=== PATIENT | female | born 1985 | race Caucasian/White ===

== ENCOUNTER 2016-05-03 05:40 | Emergency (ER) | payer BC, MEDICAID, OTHER ==
[2016-05-03] MEDS ORDERED: Phenazopyridine TAB* 100 MG PO ONE ×2 (06:14)
[2016-05-03] MEDS ORDERED: NS 0.9% 1000 ML* 1,000 ML IV ONE (07:00)
[2016-05-03] MEDS ORDERED: Sulfamethox/Trimethoprim DS 800/160* TAB PO ONE ×2 (07:21)
[2016-05-03 07:24] LABS: Urine Bacteria Absent (Absent)
--- NOTE | 2016-05-03 07:40 | ED ---
GI/ HPI - HPI Summary HPI Summary: 31 y/o female with 24 hours history of blood in urine, frequent urination. Denies fever, chills, no back pain currently. NO h/o UTIS, no recent AB use. UA ~1 year ago + for microscopic hematuria, + TOB use. No vaginal discharge, painful intercourse. Mild- moderate lower abdominal pain. no meds currently - History of Current Complaint Chief Complaint: EDUrogenitalProblems Time Seen by Provider: 05/03/16 06:50 Stated Complaint: BLOOD IN URINE Hx Obtained From: Patient Onset/Duration: Started Days Ago Timing: Constant Severity: Moderate Current Severity: Moderate Pain Intensity: 4 Location of Pain: RLQ, LLQ, Suprapubic Pain Characteristics: Dull, Cramping, Aching Associated Signs and Symptoms: Positive: Hematuria, UTI Symptoms - Allergy/Home Medications Allergies/Adverse Reactions: Allergies Allergy/AdvReac Type Severity Reaction Status Date / Time No Known Allergies Allergy Verified 08/15/15 14:38 PMH/Surg Hx/FS Hx/Imm Hx Previously Healthy: Yes Endocrine/Hematology History: Denies: Hx Diabetes - GESTIONAL DIABETES, Hx Systemic Lupus Erythematosus, Hx Thyroid Disease Cardiovascular History: Denies: Hx Congestive Heart Failure, Hx Hypertension, Hx Pacemaker/ICD Respiratory History: Denies: Hx Asthma GI History: Denies: Hx Ulcer History: Denies: Hx Dialysis, Hx Renal Disease Musculoskeletal History: Denies: Hx Rheumatoid Arthritis Sensory History: Reports: Hx Contacts or Glasses - glasses Denies: Hx Hearing Aid Opthamlomology History: Reports: Hx Contacts or Glasses - glasses Neurological History: Reports: Hx Headaches, Hx Migraine, Other Neuro Impairments/Disorders - PAIN CLINIC PATIENT Psychiatric History: Reports: Hx Bipolar Disorder Denies: Hx Panic Disorder - Cancer History Hx Chemotherapy: No - Surgical History Surgery Procedure, Year, and Place: tonsillectomy. appendectomy Infectious Disease History: No Infectious Disease History: Denies: Hx Clostridium Difficile, Hx Hepatitis, Hx Human Immunodeficiency Virus (HIV), Hx of Known/Suspected MRSA, Hx Shingles, Hx Tuberculosis, Traveled Outside the [place] in Last 30 Days - Family History Known Family History: Positive: None - Social History Alcohol Use: Rare Hx Substance Use: No Substance Use Type: Reports: None Hx Tobacco Use: Yes Smoking Status (MU): Current Every Day Smoker Type: Cigarettes Amount Used/How Often: 5 cigarettes/day Have You Smoked in the Last Year: Yes Review of Systems Constitutional: Negative Eyes: Negative ENT: Negative Cardiovascular: Negative Respiratory: Negative Positive: Abdominal Pain Positive: frequency, hematuria Musculoskeletal: Negative Skin: Negative Neurological: Negative Psychological: Normal All Other Systems Reviewed And Are Negative: Yes Physical Exam Triage Information Reviewed: Yes Vital Signs On Initial Exam: Initial Vitals Temp Pulse Resp BP Pulse Ox 98.0 F 96 17 143/86 98 05/03/16 05:50 05/03/16 05:50 05/03/16 05:50 05/03/16 05:50 05/03/16 05:50 Vital Signs Reviewed: Yes Appearance: Positive: Well-Appearing, No Pain Distress, Well-Nourished Skin: Positive: Warm, Skin Color Reflects Adequate Perfusion Head/Face: Positive: Normal Head/Face Inspection Abdomen Description: Positive: No Organomegaly, Soft, Other: - tender with moderate palpation over suprapubic, RLQ, LLQ with pain radiating to suprapubic region Neurological: Positive: Normal, Sensory/Motor Intact, Alert, Oriented to Person Place, Time, CN Intact II-III Psychiatric: Positive: Normal AVPU Assessment: Alert Diagnostics - Vital Signs Vital Signs Temp Pulse Resp BP Pulse Ox 05/03/16 05:50 98.0 F 96 17 143/86 98 - Laboratory Lab Results: Lab Results 05/03/16 Range/Units 07:03 Urine Color Red A Urine Appearance Cloudy Urine pH TNP Ur Specific [place] 1.021 (1.010-1.030) Urine Protein TNP Urine Ketones TNP Urine Blood TNP Urine Nitrate TNP Urine Bilirubin TNP Urine Urobilinogen TNP Ur Leukocyte Esterase TNP Urine WBC (Auto) 1+(6-10/hpf) H (Absent) Urine RBC (Auto) 3+(>10/hpf) H (Absent) Urine Bacteria Absent (Absent) Urine Glucose TNP Urine Ascorbic Acid TNP Lab Statement: Any lab studies that have been ordered have been reviewed, and results considered in the medical decision making process. GIGU Course/Dx - Course Course Of Treatment: UA sent, inconclusive due to emanuel hematuria, sent for cytology due to prior hematuria and TOB history, BActrim started x 7 days, return if no improvement in symptoms within 24 hours - Diagnoses Differential Diagnoses - Female: Colitis, Cystitis, Diverticulitis, Pyelonephritis Provider Diagnoses: Cystitis Discharge - Discharge Plan Condition: Good Disposition: HOME Prescriptions: Sulfamethox/Trimethoprim DS* [Bactrim DS 800/160 TAB*] 1 tab PO BID #14 tab Patient Education Materials: Urinary Tract Infection in Women (ED), Hematuria ( ED) Forms: *Work Release Additional Instructions: - Tylenol for pain, spasm - Continue antibiotics x 7 days - Follow up with PCP or return to ER if no improvement of symptoms within 24 hours or no urination x 6 hours - Increase fluids!!! - Follow up within 3-4 days in ER for cytology results
[2016-05-03 09:13] VITALS: BP 120/79
== END 2016-05-03 09:11 | disposition home or self-care (01) ==
LOC: ED 05:40
DX: N30.90 Cystitis, unspecified without hematuria (principal); R31.9 Hematuria, unspecified; R10.30 Lower abdominal pain, unspecified
CPT/HCPCS: 81003; 88112; 99282; A9270-GY

== ENCOUNTER 2016-05-20 17:17 | Emergency (ER) | payer MEDICAID, OTHER ==
[2016-05-20 21:12] LABS: Hematocrit 46 % (35-47); Hemoglobin 15.8 g/dl (12.0-16.0); Mean Corpuscular HGB Conc 34 g/dl (31-36); Mean Corpuscular Hemoglobin 28 pg (27-31); Mean Corpuscular Volume 83 fL (80-97); Mean Platelet Volume 8 um3 (7.4-10.4); Red Blood Count 5.63 10^6/ul (4.0-5.4); Red Cell Distribution Width 13 % (10.5-15); White Blood Count 8.7 10^3/ul (3.5-10.8)
[2016-05-20 21:28] LABS: Albumin 4.3 g/dL (3.2-5.2); BUN/Creatinine Ratio 21.6 (8-20); C Reactive Protein 7.52 mg/L (< 5.00); Calcium 9.2 mg/dL (8.6-10.3); EGFR African American 179.7 (>60); EGFR Non-African American 139.8 (>60); Globulin 2.7 g/dL (2-4); Potassium 3.9 mmol/L (3.5-5.0); Total Bilirubin 0.8 mg/dL (0.2-1.0)
[2016-05-20 21:36] LABS: Urine Bacteria Absent (Absent); Urine Bilirubin Negative (Negative); Urine Glucose Negative (Negative); Urine Nitrite Negative (Negative)
[2016-05-20] MEDS ORDERED: Ondansetron INJ* 2 MG/ML VIAL IV ONE (21:48)
[2016-05-20] MEDS ORDERED: HYDROmorphone INJ* 1 MG/ML CARPUJECT SYRINGE IV ONE ×2 (21:48)
--- NOTE | 2016-05-20 22:20 | RAD ---
INDICATION: Right flank abdominal pain. COMPARISON: Comparison is made with a prior CT of the abdomen and pelvis from April 28, 2015. TECHNIQUE: A CT scan of the abdomen and pelvis was performed without intravenous or oral contrast. Contiguous axial sections were obtained from the lung bases through the symphysis pubis. Images were reconstructed in the coronal and sagittal planes. FINDINGS: The lung bases are clear. No pleural effusion is present. The liver and spleen are within normal limits in size without significant focal abnormality on this noncontrast study. No calcified gallstones are seen. The pancreas appears to be within normal limits in size. The adrenal glands and kidneys are normal in size. No renal calculi or hydronephrosis is seen. No ureteral or bladder calculi are seen. The aorta is normal in caliber without significant calcific plaque. No significant enlarged retroperitoneal lymph nodes are seen. The stomach, small and large bowel appear nondistended. The patient is status post appendectomy. There is no evidence for diverticulitis or colitis. The uterus is retroverted and normal in size. There is a trace amount of free intraperitoneal fluid in the cul-de-sac. No free intraperitoneal air is seen. No significant focal osseous abnormality is seen. IMPRESSION: 1. NO EVIDENCE FOR ACUTE INTRA-ABDOMINAL ABNORMALITY OR CAUSE FOR THE PATIENT'S ABDOMINAL PAIN IS SEEN. 2. STATUS POST APPENDECTOMY.
[2016-05-20] MEDS ORDERED: HYDROcodone/ACETAMIN 5-325 MG* 1 TAB PO ONE (23:00)
[2016-05-20] MEDS ORDERED: HYDROcodone/ACETAMIN 5-325 MG* 1 TAB ONE ×2 (23:10)
[2016-05-20 23:22] VITALS: BP 107/80
--- NOTE | 2016-05-20 23:56 | ED ---
Archie Mitchell Erika, scribed for Kulwant Brar MD on 05/20/16 at 2141 . GI/ HPI - HPI Summary HPI Summary: Patient is a 31-year-old female presenting to the ED with a CC of bilateral flank pain. Patient reports that she was seen in the ED on 05/03/2016 due to gross hematuria that morning. She was put on a course of doxycycline. Now, patient denies known hematuria, but states bilateral flank pain for the past few days, worse on the right than the left. She describes the pain as an aching/ dullness, and states it is worse in the morning but is not affected by movement. Pt has chronic back pain, but reports that this feels different. She states she most recently urinated 4 hours ago, and that she usually urinates 3x/ day. Pt denies increased urgency currently and denies a change in amount of urine. Patient also reports some nausea. She states that last night, she suddenly developed what felt like "a weight on my body," which improved after sitting down. This afternoon, another episode occurred, and this time she became very nauseated afterwards. Pt also notes she developed pain in her right calf a few days ago. Pt states that since January or February of 2016, she has had her period 2x/month. - History of Current Complaint Chief Complaint: EDUrogenitalProblems Time Seen by Provider: 05/20/16 19:38 Stated Complaint: BACK PAIN,NAUSEA,WEAKNESS Hx Obtained From: Patient Onset/Duration: Started Days Ago, Atraumatic, Still Present Timing: Constant Current Severity: Moderate Pain Intensity: 5 Location of Pain: Flank - R>L Pain Characteristics: Aching Associated Signs and Symptoms: Positive: Nausea Aggravating Factor(s): Nothing Alleviating Factor(s): Nothing - Allergy/Home Medications Allergies/Adverse Reactions: Allergies Allergy/AdvReac Type Severity Reaction Status Date / Time No Known Allergies Allergy Verified 08/15/15 14:38 PMH/Surg Hx/FS Hx/Imm Hx Endocrine/Hematology History: Denies: Hx Diabetes - GESTIONAL DIABETES, Hx Systemic Lupus Erythematosus, Hx Thyroid Disease Cardiovascular History: Denies: Hx Congestive Heart Failure, Hx Hypertension, Hx Pacemaker/ICD Respiratory History: Denies: Hx Asthma GI History: Denies: Hx Ulcer History: Denies: Hx Dialysis, Hx Renal Disease Musculoskeletal History: Denies: Hx Rheumatoid Arthritis Sensory History: Reports: Hx Contacts or Glasses - glasses Denies: Hx Hearing Aid Opthamlomology History: Reports: Hx Contacts or Glasses - glasses Neurological History: Reports: Hx Headaches, Hx Migraine, Other Neuro Impairments/Disorders - PAIN CLINIC PATIENT Psychiatric History: Reports: Hx Bipolar Disorder Denies: Hx Panic Disorder - Cancer History Hx Chemotherapy: No - Surgical History Surgery Procedure, Year, and Place: tonsillectomy. appendectomy Infectious Disease History: No Infectious Disease History: Denies: Hx Clostridium Difficile, Hx Hepatitis, Hx Human Immunodeficiency Virus (HIV), Hx of Known/Suspected MRSA, Hx Shingles, Hx Tuberculosis, Traveled Outside the [place] in Last 30 Days - Family History Known Family History: Positive: Other - aneurysm, bipolar disorder - Social History Alcohol Use: Rare Hx Substance Use: No Substance Use Type: Reports: None Hx Tobacco Use: Yes Smoking Status (MU): Current Every Day Smoker Type: Cigarettes Amount Used/How Often: 5 cigarettes/day Have You Smoked in the Last Year: Yes Review of Systems Constitutional: Other - "a weight on my body" sensation Positive: Nausea Positive: flank pain - R>L. Negative: frequency, urgency Musculoskeletal: Other - right calf pain All Other Systems Reviewed And Are Negative: Yes Physical Exam Triage Information Reviewed: Yes Vital Signs On Initial Exam: Initial Vitals Temp Pulse Resp BP Pulse Ox 98.0 F 127 20 142/97 100 05/20/16 17:48 05/20/16 17:48 05/20/16 17:48 05/20/16 17:48 05/20/16 17:48 Vital Signs Reviewed: Yes Appearance: Positive: Well-Appearing, No Pain Distress Skin: Positive: Warm, Skin Color Reflects Adequate Perfusion, Dry Head/Face: Positive: Normal Head/Face Inspection Eyes: Positive: Normal ENT: Positive: Normal ENT inspection Neck: Positive: Supple, Nontender Respiratory/Lung Sounds: Positive: Clear to Auscultation, Breath Sounds Present Cardiovascular: Positive: Tachycardia - at 127 on triage Abdomen Description: Positive: Nontender, Soft. Negative: CVA Tenderness (R), CVA Tenderness (L) Bowel Sounds: Positive: Present Musculoskeletal: Positive: Normal Neurological: Positive: Normal Psychiatric: Positive: Affect/Mood Appropriate Diagnostics - Vital Signs Vital Signs Temp Pulse Resp BP Pulse Ox 05/20/16 17:48 98.0 F 127 20 142/97 100 - Laboratory Lab Results: Lab Results 05/20/16 05/20/16 05/20/16 Range/Units 20:55 20:55 20:55 WBC 8.7 (3.5-10.8) 10^3/ul RBC 5.63 H (4.0-5.4) 10^6/ul Hgb 15.8 (12.0-16.0) g/dl Hct 46 (35-47) % MCV 83 (80-97) fL MCH 28 (27-31) pg MCHC 34 (31-36) g/dl RDW 13 (10.5-15) % Plt Count 232 (150-450) 10^3/ul MPV 8 (7.4-10.4) um3 Neut % (Auto) 90.0 H (38-83) % Lymph % (Auto) 4.5 L (25-47) % Branch % (Auto) 4.1 (1-9) % Eos % (Auto) 1.1 (0-6) % Baso % (Auto) 0.3 (0-2) % Absolute Neuts (auto) 7.9 H (1.5-7.7) 10^3/ul Absolute Lymphs (auto) 0.4 L (1.0-4.8) 10^3/ul Absolute Monos (auto) 0.4 (0-0.8) 10^3/ul Absolute Eos (auto) 0.1 (0-0.6) 10^3/ul Absolute Basos (auto) 0 (0-0.2) 10^3/ul Absolute Nucleated RBC 0 10^3/ul Nucleated RBC % 0 Sodium 134 (133-145) mmol/L Potassium 3.9 (3.5-5.0) mmol/L Chloride 105 (101-111) mmol/L Carbon Dioxide 22 (22-32) mmol/L Anion Gap 7 (2-11) mmol/L BUN 11 (6-24) mg/dL Creatinine 0.51 (0.51-0.95) mg/dL Est GFR ( Amer) 179.7 (>60) Est GFR (Non-Af Amer) 139.8 (>60) BUN/Creatinine Ratio 21.6 H (8-20) Glucose 117 H (70-100) mg/dL Lactic Acid (0.5-2.0) mmol/L Calcium 9.2 (8.6-10.3) mg/dL Total Bilirubin 0.80 (0.2-1.0) mg/dL AST 14 (13-39) U/L ALT 15 (7-52) U/L Alkaline Phosphatase 67 (34-104) U/L C-Reactive Protein 7.52 H (< 5.00) mg/L Total Protein 7.0 (6.4-8.9) g/dL Albumin 4.3 (3.2-5.2) g/dL Globulin 2.7 (2-4) g/dL Albumin/Globulin Ratio 1.6 (1-3) Lipase 21 (11.0-82.0) U/L Urine Color Yellow Urine Appearance Turbid Urine pH 5.0 (5-9) Ur Specific [place] 1.030 (1.010-1.030) Urine Protein Negative (Negative) Urine Ketones 1+ H (Negative) Urine Blood Negative (Negative) Urine Nitrate Negative (Negative) Urine Bilirubin Negative (Negative) Urine Urobilinogen Negative (Negative) Ur Leukocyte Esterase Trace H (Negative) Urine WBC (Auto) Absent (Absent) Urine RBC (Auto) Absent (Absent) Ur Squamous Epith Cells Present H (Absent) Amorphous Crystals Present H (Absent) Urine Bacteria Absent (Absent) Urine Glucose Negative (Negative) 05/20/16 Range/Units 20:55 WBC (3.5-10.8) 10^3/ul RBC (4.0-5.4) 10^6/ul Hgb (12.0-16.0) g/dl Hct (35-47) % MCV (80-97) fL MCH (27-31) pg MCHC (31-36) g/dl RDW (10.5-15) % Plt Count (150-450) 10^3/ul MPV (7.4-10.4) um3 Neut % (Auto) (38-83) % Lymph % (Auto) (25-47) % Branch % (Auto) (1-9) % Eos % (Auto) (0-6) % Baso % (Auto) (0-2) % Absolute Neuts (auto) (1.5-7.7) 10^3/ul Absolute Lymphs (auto) (1.0-4.8) 10^3/ul Absolute Monos (auto) (0-0.8) 10^3/ul Absolute Eos (auto) (0-0.6) 10^3/ul Absolute Basos (auto) (0-0.2) 10^3/ul Absolute Nucleated RBC 10^3/ul Nucleated RBC % Sodium (133-145) mmol/L Potassium (3.5-5.0) mmol/L Chloride (101-111) mmol/L Carbon Dioxide (22-32) mmol/L Anion Gap (2-11) mmol/L BUN (6-24) mg/dL Creatinine (0.51-0.95) mg/dL Est GFR ( Amer) (>60) Est GFR (Non-Af Amer) (>60) BUN/Creatinine Ratio (8-20) Glucose (70-100) mg/dL Lactic Acid 0.9 (0.5-2.0) mmol/L Calcium (8.6-10.3) mg/dL Total Bilirubin (0.2-1.0) mg/dL AST (13-39) U/L ALT (7-52) U/L Alkaline Phosphatase (34-104) U/L C-Reactive Protein (< 5.00) mg/L Total Protein (6.4-8.9) g/dL Albumin (3.2-5.2) g/dL Globulin (2-4) g/dL Albumin/Globulin Ratio (1-3) Lipase (11.0-82.0) U/L Urine Color Urine Appearance Urine pH (5-9) Ur Specific [place] (1.010-1.030) Urine Protein (Negative) Urine Ketones (Negative) Urine Blood (Negative) Urine Nitrate (Negative) Urine Bilirubin (Negative) Urine Urobilinogen (Negative) Ur Leukocyte Esterase (Negative) Urine WBC (Auto) (Absent) Urine RBC (Auto) (Absent) Ur Squamous Epith Cells (Absent) Amorphous Crystals (Absent) Urine Bacteria (Absent) Urine Glucose (Negative) Result Diagrams: 05/20/16 20:55 05/20/16 20:55 Lab Statement: Any lab studies that have been ordered have been reviewed, and results considered in the medical decision making process. - CT CT A/P W/O CT Interpretation Completed By: Radiologist - IMPRESSION: 1. NO EVIDENCE FOR ACUTE INTRA-ABDOMINAL ABNORMALITY OR CAUSE FOR THE PATIENT'S ABDOMINAL PAIN IS SEEN. 2. STATUS POST APPENDECTOMY. Re-Evaluation - Re-Evaluation First Eval Re-Evaluation Time: 22:51 Change: Improved Comment: Pt will be discharged at this time. Discussed plan GIGU Course/Dx - Course Course Of Treatment: Alyssa Osorio presented with low back pain after having been seen for gross hematuria a couple weeks ago. Her urine has cleared but she has not F/U's yet as she had no insurance. She now has insurance and has an appointment with [facility]. Her U/A, labs and CT were negative and she was given symptomatic treatment and recommended F/U. - Diagnoses Provider Diagnoses: Back pain Discharge - Discharge Plan Condition: Stable Disposition: HOME Prescriptions: HYDROcodone/ACETAMIN 5-325 MG* [Paragon 5-325 TAB*] 1 tab PO Q6H PRN #20 tab MDD 4 PRN Reason: Pain - Back Patient Education Materials: Back Pain (ED) Referrals: [facility] REFERRAL [Outside] Additional Instructions: Please follow up with your PCP. The documentation as recorded by the Archie flores Erika accurately reflects the service I personally performed and the decisions made by me, Kulwant Brar MD.
== END 2016-05-20 23:19 | disposition home or self-care (01) ==
LOC: ED 17:17
DX: M54.9 Dorsalgia, unspecified (principal); R10.84 Generalized abdominal pain; R31.0 Gross hematuria; F17.210 Nicotine dependence, cigarettes, uncomplicated; R11.0 Nausea
CPT/HCPCS: 36415; 74176; 80053; 81003; 81015; 83605; 83690; 85025; 86140; 87086; 96374; 96375; 99284; J1170; J2405

== ENCOUNTER 2016-06-29 16:14 | Emergency (ER) | payer OTHER ==
[2016-06-29 16:52] VITALS: BP 130/88
--- NOTE | 2016-06-29 17:13 | UC ---
Dizzy HPI HPI Summary: The patient comes in today for: 1. Dizziness: Onset: 5 hours ago. Palliative/provocative: Bending over makes these spells worse. Being still and not standing up after bending over makes it better. Quality: "head allred." Region: CERTIFIED NURSE Severity: No pain--just "pressure." Time: Dizziness was for 4 minutes at most, but pressure in the head "all over" is constant. Associated symptoms: Event: She was squatting at work and stood up. She was squatting for about 4 minutes. Then she stood up and immediately felt "dizzy." She states that she "almost fell over." She had to brace herself against the wall. She felt "dizzy" for 3-4 minutes. With this sensation, she put her knees on the floor, braced herself against the window ledge and wall. She states that she had a "head allred." When asked to describe "dizziness" without using "dizziness," "woozy," "fuzzy," discombobulated," or having a "head allred," and she is not able to do this. She denies any nausea. She denies any room or herself turning. But, she felt like she was going to fall over--imbalanced. She also had "extreme head pressure" which she tried to stand up. She only has slight head pressure at this time. This "head pressure" is located "all over." He stated she left work and went to [employer]. She states that while she was at [employer] she bent over to look at some beads. She had the same there as she had at work in character, but not in duration or intensity. She states that it only lasted 1-2 minutes. And it was not as intense. All these episodes were at 10:30 to 11:00 for the first one and the second one was 12 noon to 12:30. Previous disease: None. Treatment: None. * - History Of Current Complaint Chief Complaint: UCDizziness Stated Complaint: LIGHT-HEADED Time Seen by Provider: 06/29/16 16:39 Hx Obtained From: Patient Hx Last Menstrual Period: 06/22/16 ?: No - Allergies/Home Medications Allergies/Adverse Reactions: Allergies Allergy/AdvReac Type Severity Reaction Status Date / Time No Known Allergies Allergy Verified 08/15/15 14:38 PMH/Surg Hx/FS Hx/Imm Hx Previously Healthy: No - ADHD (on adderall), insomnia, gestational DM, Hx hematuria, hematochezia Endocrine History Of: Denies: Diabetes, Thyroid Disease, Hyperthyroidism, Hypothyroidism, Dyslipidemia Cardiovascular History Of: Reports: Hypertension - She states she had this before, but her BP is "not high any more." Denies: Cardiac Disorders, Pacemaker/ICD, Myocardial Infarction, Congestive Heart Failure, Atrial Fibrillation, Deep Vein Thrombosis, Bleeding Disorders Respiratory History Of: Denies: COPD, Asthma, Bronchitis, Pneumonia, Pulmonary Embolism GI/ History Of: Denies: Gastroesophageal Reflux, Ulcer, Gastrointestinal Bleed, Gall Bladder Disease, Kidney Stones, Diverticulitis, Renal Disease, Urosepsis Neurological History Of: Denies: TIA, CVA, Dementia, Seizures, Migraine Psychological History Of: Reports: Anxiety Denies: Bipolar Disorder, Schizophrenia, Post Traumatic Stress Disorder Cancer History Of: Denies: Lung Cancer, Colorectal Cancer, Breast Cancer, Prostate Cancer, Cervical Cancer Other History Of: Negative For: HIV, Hepatitis B, Hepatitis C, Anticoagulant Therapy - Surgical History Surgical History: Yes Surgery Procedure, Year, and Place: tonsillectomy. appendectomy - Family History Known Family History: Positive: Hypertension, Other - aneurysm, bipolar disorder Negative: Cardiac Disease - Social History Occupation: Employed Full-time Alcohol Use: Rare Substance Use Type: None Smoking Status (MU): Current Every Day Smoker Type: Cigarettes Amount Used/How Often: 7-9 cigarettes/day Have You Smoked in the Last Year: Yes Household Exposure Type: Cigarettes Review of Systems Constitutional: Negative Skin: Negative Eyes: Negative ENT: Negative Respiratory: Negative Cardiovascular: Negative Gastrointestinal: Negative Genitourinary: Negative All Other Systems Reviewed And Are Negative: Yes Physical Exam Triage Information Reviewed: Yes Appearance: Well-Appearing, No Pain Distress, Well-Nourished Vital Signs: Initial Vital Signs Temp 98.5 F 06/29/16 16:33 Pulse 102 06/29/16 16:33 Resp 18 06/29/16 16:33 BP 130/88 06/29/16 16:33 Pulse Ox 98 06/29/16 16:33 Vital Signs Reviewed: Yes Eyes: Positive: Conjunctiva Clear. Negative: Discharge ENT: Positive: Hearing grossly normal. Negative: Pharyngeal erythema, Nasal congestion, Nasal drainage, TM bulging, TM dull, TM red, Tonsillar swelling, Tonsillar exudate Dental: Negative: Gross Decay/Caries @, Dental Fracture @ Neck: Positive: Supple, Nontender, No Lymphadenopathy. Negative: Nuchal Rigidity Respiratory: Positive: Chest non-tender, Lungs clear, No respiratory distress, No accessory muscle use. Negative: Crackles, Wheezing Cardiovascular: Positive: RRR, No Murmur Abdomen Description: Positive: Nontender, No Organomegaly, Soft. Negative: Distended, Guarding Musculoskeletal: Positive: Strength Intact, ROM Intact, No Edema Neurological: Positive: Alert, Muscle Tone Normal, Other: - Neurologic exam: Inspection: no fasciculations. Cranial nerves (II-XII): intact Muscular tone: Reflexes: Biceps: 2+/2 x 2 Triceps: 2+/2 x 2 Brachioradialis: 2+/2 x 2 Patellar: 2+/2 x 2 Achilles: 2+/2 x 2 Coordination: Upper extremity: Alternating patting of thighs, alternating fingertips to thumb, index finger tip to nose--all normal. Lower extremity: Heel along lu--normal. Strength: Upper extremity: appropriate for age and symmetrical Lower extremity: appropriate for age and symmetrical Gait: Regular: Normal. Heel to toe: Normal. [place]: Normal. Sensation: No complaint of numbness. Psychological: Positive: Age Appropriate Behavior, Consolable Skin: Negative: rashes, breakdown Dizzy Course/Dx - Course Course Of Treatment: The patient had the Soledad-Halpike test done. There was no obvious positive findings, but she did say when she sat up, she felt "not right. " but no overt vertigo. Shortly after this, she appeared upset and when asking about it, she started crying stating that she has seen her primary care provider for hematuria, and hematochezia. She has had a work up for this, and is now supposed to see a specialist. However, she has not made the appointments with the specialist she has the phone number for. I offered medications other than her Klonopin for her anxiety such as a anti-depressant if she wanted one as she seemed upset, but she state that she did not want any medications. She states that "nothing is found" and that she feels like "shit all the time." She declined any medications. She was encouraged to follow up with her primary care provider for her slightly elevated blood pressure later this week. - Differential Dx/Diagnosis Provider Diagnoses: Dizziness. high blood pressure. Headache. Discharge - Discharge Plan Condition: Stable Disposition: HOME Patient Education Materials: Dizziness (ED) Referrals: Jesús PEREZ,Kat Thomas [Primary Care Provider] - 3 Days (Please be sure to follow up with your primary care provider as he or she has recommended for your other medical problems and your blood pressure. If you get worse, please go to the ER.)
== END 2016-06-29 18:00 | disposition home or self-care (01) ==
LOC: UCEAST 16:14
DX: R42 Dizziness and giddiness (principal); R51 Headache; I10 Essential (primary) hypertension; F17.210 Nicotine dependence, cigarettes, uncomplicated
CPT/HCPCS: 93005; 99211; G0463

== ENCOUNTER 2016-08-25 10:45 | Observation (INO) | payer OTHER ==
[2016-08-25] MEDS ORDERED: Enoxaparin(*) 100 MG/ML SYR SUBCUT SCH (13:00)
[2016-08-25] MEDS ORDERED: Acetaminophen TAB* 325 MG PO PRN (14:16)
[2016-08-25] MEDS ORDERED: Temazepam CAP* 15 MG PO PRN (14:16)
[2016-08-25 14:22] LABS: Hematocrit 45 % (35-47); Hemoglobin 15.1 g/dl (12.0-16.0); Mean Corpuscular HGB Conc 34 g/dl (31-36); Mean Corpuscular Hemoglobin 29 pg (27-31); Mean Corpuscular Volume 84 fL (80-97); Mean Platelet Volume 9 um3 (7.4-10.4); Red Cell Distribution Width 14 % (10.5-15); White Blood Count 8.9 10^3/ul (3.5-10.8)
[2016-08-25 14:33] LABS: Albumin 4.1 g/dL (3.2-5.2); BUN/Creatinine Ratio 12.1 (8-20); Calcium 9.2 mg/dL (8.6-10.3); EGFR African American 154.9 (>60); EGFR Non-African American 120.5 (>60); Globulin 2.9 g/dL (2-4); Potassium 3.9 mmol/L (3.5-5.0); Total Bilirubin 0.4 mg/dL (0.2-1.0)
[2016-08-25] MEDS ORDERED: clonazePAM TAB(*) 0.5 MG PO PRN (14:39)
[2016-08-25] MEDS ORDERED: oxyCODONE/Acetamin 5/325 MG* TAB ONE (14:51)
[2016-08-25] MEDS ORDERED: Enoxaparin(*) 100 MG/ML SYR ONE (14:52)
[2016-08-25] MEDS: oxyCODONE/Acetamin 5/325 MG* TAB PO PRN ×2 (14:53→20:52)
[2016-08-25] MEDS: Enoxaparin(*) 100 MG/ML SYR SUBCUT SCH (14:55)
[2016-08-25] MEDS: NS 0.9% 1000 ML* 1,000 ML IV SCH (16:02)
[2016-08-25] MEDS: Warfarin TAB(*) 5 MG PO SCH (17:20)
--- NOTE | 2016-08-25 22:37 | HP ---
HISTORY AND PHYSICAL: DATE OF ADMISSION: 08/25/16 PRIMARY CARE PROVIDER: Dr. Kennedy. CHIEF COMPLAINT: The patient is sent as a direct admission by Dr. Bentley's recommendation due to abnormal findings on head MRI on 08/24/16 that showed thrombosis of the left transverse sinus and right transverse sigmoid sinus junction. HISTORY OF PRESENT ILLNESS: Alyssa Osorio is a 31-year-old female with history of chronic back pain who has been having headaches for the past 2 months. 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 The patient stated that she had been seen by Kat Espinosa and did a visual field evaluation. There was also question of optic disc edema at some point as the patient mentioned. The patient stated that she had issues with seeing a neurologist. Initially, she was supposed to be seen in [place] by a neurologist, but that appointment was canceled by the physician. The patient finally was seen by Dr. Bentley within the past couple of days. A head MRI obtained on 08/24/16 showed findings suggestive of thrombosis of the left transverse sinus with partial reconstitution at the level of transverse sigmoid junction. There was also an abnormality of the right transverse sigmoid junction which may reflect chronic partially recanalized thrombus. Please also note that the patient had been seen by Dr. Link for epidural steroid injections for chronic back pain in the past. Dr. Bentley asked for the patient to be directly admitted to the hospital with the above-mentioned transverse sinus thrombosis. The patient is going to be placed on telemetry monitored bed and anticoagulated. PAST MEDICAL HISTORY: 1. The patient has a history of chronic intermittent headaches, but had been having constant headaches for 2 months. 2. The patient has a history of appendectomy. 3. History of chronic low back pain due to degenerative disk disease, under the care of Dr. Link. 4. History of gestational diabetes. 5. History of preeclampsia. 6. History of occasional hypertension in the past. MEDICATIONS: Include: 1. Adderall XR 30 mg daily. 2. Klonopin 0.5 mg on a p.r.n. basis for sleep and for anxiety. The patient stated that she uses it rarely. ALLERGIES: No known drug allergies, but the patient has noted GI upset after using ULTRAM. FAMILY HISTORY: Positive for mother with mental health issues and prediabetes. Father who after committing suicide. The patient's father had a history of cerebral AVMs. He had several surgeries on his brain due to that. He also had a history of traumatic brain injuries in the past. SOCIAL HISTORY: The patient smoked approximately half a pack a day. She denies any alcohol or drug use. She has a 6-year-old son. Her surrogate is her mother, Maria De Jesus Dean. She also noted that her sister, Kim Chow, as another person of contact. REVIEW OF SYSTEMS: Please see history of present illness. In addition to above mentioned, the patient stated that she had been feeling lightheaded when changing position from squatting to standing and from sitting to standing. The patient denies any nausea. Denies any visual abnormalities. The patient had no problems with focal weakness. Her speech had been fine. Her headaches, she describes as frontal and bilateral temporal as well as an area in the occipital region. The headaches get worse when she bends her body down. Otherwise, there are no other alleviating or aggravating factors. All the remaining 14 systems were reviewed with the patient and were otherwise negative. PHYSICAL EXAMINATION GENERAL: This is a very pleasant 31-year-old female who is in no acute distress. Alert, awake, and oriented x3. VITAL SIGNS: Blood pressure of 132/85, heart rate 83 and regular, respiratory rate 16, oxygen saturation 97% on room air, and temperature of 98.0. HEENT: Head: Atraumatic, normocephalic. Eyes: Pupils equal, reactive to light and accommodation. Oropharynx clear. Mucosa moist. NECK: Supple. No JVD, no bruit bilaterally. RESPIRATORY: Clear to auscultation bilaterally. CARDIOVASCULAR: Regular rate and rhythm. No murmur. ABDOMEN: Soft, nontender. Bowel sounds present in all 4 quadrants. EXTREMITIES: There is no edema. Pulses are +2 bilaterally. No clubbing or cyanosis. NEUROLOGIC EVALUATION: Speech clear. Cranial nerves II through XII grossly intact. Motor strength is 5/5 bilaterally. Bilateral hand estate administrator is +5 bilaterally. Gzityv-ja-imbd is not dysmetric. There is no pronator drift. Heel -to-lu is not dysmetric either. The patient has steady gait. PSYCHIATRIC EVALUATION: Alert and oriented x3 with no evidence of anxiety or depression. SKIN: On evaluation of the skin, no ecchymotic areas or rashes noted. LABORATORY DATA: Pending at the time of dictation. Hypercoagulable data that included activated protein C resistance, antithrombin III activity, phospholipid IgM antibody, cardiolipin IgG and IgM as well as factor V Leiden mutation, lupus anticoagulant profile, prothrombin 10296 mutation, protein C and S activity are pending at the time of dictation. test was also ordered and is pending at the time of dictation. ASSESSMENT AND PLAN: Alyssa Osorio is a 31-year-old female who has history of not being on contraceptives. She does have a history of smoking half a pack per day and she presented to the hospital after being directed here from neurology office after she was noted to have transverse sinus thrombosis. After discussion with Dr. Bentley and Dr. Carvajal, the plan is as below: After obtaining hypercoagulable workup, the patient is going to be placed on Lovenox 5 mg/kg every 12 hours. The patient's Coumadin is going to be started today. The patient is going to be placed on gentle hydration and her beta HCG is going to be checked. I will continue neuro checks every 4 hours. During the initiation of anticoagulation, the patient is going to be placed initially on telemetry monitored floor. For DVT prophylaxis as above, the patient is going to be placed as an outpatient on full dose of Lovenox. In regards to the patient's history of anxiety and attention deficit hyperactivity disorder, the patient is going to be continued on Klonopin and Adderall as previously taken. TIME SPENT: Approximately 65 minutes were spent on admission of this patient, more than half that time was spent [id number] with the patient during the interview and physical exam. CC: Dr. Kennedy; SANDRA Rg; Dr. Bentley; Dr. Delaney; Dr. Carvajal * [id number]/[facility] #: [id number] [facility] CENT[facility]rika
--- NOTE | 2016-08-26 01:07 | CONS ---
CONSULTATION REPORT: DATE OF CONSULT: 08/25/16 PATIENT OF: Dr. Bentley and Dr. Kennedy. HISTORY OF PRESENT ILLNESS: This is a 31-year-old woman who I am consulting on for intracranial hypertension and venous thrombosis. She is a 31-year-old woman who had been seen by Dr. Bentley on 08/19/16 with the history of headache for a 2-year period, but without any visual symptoms. She had tinnitus and had nausea and the headache has gotten worse in the past couple of months' time. She has been seen by an strategy specialist and was told that she had papilledema, and Dr. Bentley showing venous pulsations without cups and had flat discs on exam. He arranged to get a spinal tap following an MRA and MRV. Today she was admitted following the MRV. She has had an MRI scan in the past that showed a partially empty sella. The patient's history to me is somewhat different in that she has had intermittent headaches for the past 2 years, but there was a change in the past 2 months with headaches being daily. She also notes that in the past 2 months, there has been some intermittent blurriness of her vision, no darkening, no obscuration of vision. Her headache have been getting worse over the past 2 months' time. She denies any significant vitamin needs and does note that she has had tinnitus. PAST MEDICAL HISTORY: She has had disk disease. PAST SURGICAL HISTORY: Status post tonsillectomy and appendectomy. MEDICATIONS: 1. She has been on chronic Motrin twice a day. 2. Klonopin 0.5 p.r.n. 3. Tramadol 50 mg subcutaneously every 6 hours as needed. 4. Dextroamphetamine ER 30 mg once a day for ADD and fatigue. ALLERGIES: She has no known allergies. SOCIAL HISTORY: She smokes every day 10 to fewer cigarettes per day and does not drink or use drugs. REVIEW OF SYSTEMS: Significant for anxiety and depression and some chronic forgetfulness. PHYSICAL EXAM: Temperature 98.4, pulse 100, respirations 18, blood pressure 117 /72. She is alert and oriented with normal speech and comprehension. Cranial nerves II through XII are normal other than that she had slight blurring of discs bilaterally, loss of optic cup and did not fully abduct her left eye to the left, but did not describe any double vision looking to the left or the right. Rest of the cranial nerves were normal. Strength is 5/5 with normal tone. Bgxzor-wj-[id number] is intact. Sensation is intact to light touch and proprioception. Reflexes 2 and equal. Toes downgoing. Chest is clear. Cardiovascular: Regular rate and rhythm. Abdomen: Soft with positive bowel sounds. LABORATORY DATA: Include pending hypercoagulable workup, normal CBC. PTT is 22. Normal CMP. Cardiolipin antibody pending. Prothrombin gene study is pending. Beta-HCG has also been ordered. IMPRESSION: I reviewed her MRI and MRA which was significant for thrombosis of her left venous transverse sinus with partial reconstruction, as well as thrombus in her right transverse. Plan is to partially recanalize. I discussed with Dr. Bentley and Dr. Lucas and Alyssa that Alyssa has pseudotumor cerebri most likely secondary to her venous sinus thrombosis and the hypercoagulable workup is in progress and she is being now anticoagulated. She is also being hydrated. When she is on therapeutic Coumadin, she will go home. Depending on the results of hypercoagulable workup, decision will be made as an outpatient whether to continue assisted or whether to get a lumbar puncture off anticoagulation.. For now, she should be treated presumptively for pseudotumor. Once she is hydrated tonight, we will begin Diamox. Her history is concerning in that she has had some progression of her headache and visual symptoms over the past several weeks' time. [id number]/[facility] #: [id number] MTDD
[2016-08-26] MEDS: NS 0.9% 1000 ML* 1,000 ML IV SCH (02:25)
[2016-08-26] MEDS: Enoxaparin(*) 100 MG/ML SYR SUBCUT SCH ×2 (04:22→15:28)
[2016-08-26 05:45] LABS: Hematocrit 40 % (35-47); Hemoglobin 13.2 g/dl (12.0-16.0); Mean Corpuscular HGB Conc 33 g/dl (31-36); Mean Corpuscular Hemoglobin 28 pg (27-31); Mean Corpuscular Volume 84 fL (80-97); Mean Platelet Volume 9 um3 (7.4-10.4); Red Blood Count 4.79 10^6/ul (4.0-5.4); Red Cell Distribution Width 14 % (10.5-15); White Blood Count 8.1 10^3/ul (3.5-10.8)
[2016-08-26] MEDS: acetaZOLAMIDE TAB* 250 MG PO SCH ×3 (09:01→20:35)
[2016-08-26] MEDS: Amphetamine/Dextroamph ER(NF) 30 MG CAP.ER PO SCH (09:02)
[2016-08-26 12:45] LABS: Protein C Activity 119 % (70 - 150)
[2016-08-26 13:02] LABS: LAC APTT 29 sec (26 - 36); Lac DRVVT Screen Ratio 1.1 ratio (0.0 - 1.1); Prothrombin Time(LAC) 11.5 sec
[2016-08-26] MEDS: oxyCODONE/Acetamin 5/325 MG* TAB PO PRN ×2 (15:29→20:35)
[2016-08-26] MEDS: Warfarin TAB(*) 5 MG PO SCH (16:52)
--- NOTE | 2016-08-26 17:36 | PN ---
Subjective Date of Service: 08/26/16 Interval History: Seen with sister and mother present Feels "a little out of it" like she was drugged. Did receive percocet overnight and did not get amphetamine [place] present but it is the "best headache" compared with those over the last 2 years No N/V, LH No bleeding noted Long conversation with family. Pt is frustrated because she feels like she has been her only advocate before entering the hospital and her outpatient care has been fragmented. She had an endocrine appointment canceled after waiting 6 weeks Objective Active Medications: Acetaminophen (Tylenol Tab*) 650 mg PO Q4H PRN PRN Reason: FEVER/PAIN Acetazolamide (Diamox Tab*) 250 mg PO TID [facility] Last Admin: 08/26/16 13:30 Dose: 250 mg Amphetamine/Dextroamphetamine (Adderal Xr (Nf)) 30 mg PO DAILY [facility] Last Admin: 08/26/16 09:02 Dose: Not Given Clonazepam (Klonopin Tab(*)) 0.5 mg PO BEDTIME PRN PRN Reason: SLEEP Last Admin: 08/25/16 20:52 Dose: 0.5 mg Enoxaparin Sodium (Lovenox(*)) 90 mg SUBCUT 0300,1500 [facility] Last Admin: 08/26/16 15:28 Dose: 90 mg Sodium Chloride (Ns 0.9% 1000 Ml*) 1,000 mls @ 100 mls/hr IV PER RATE [facility] Last Admin: 08/26/16 02:25 Dose: 100 mls/hr Oxycodone/Acetaminophen (Percocet 5/325 Tab*) 1 tab PO Q4H PRN PRN Reason: Pain Last Admin: 08/26/16 15:29 Dose: 1 tab Warfarin Sodium (Coumadin Tab(*)) 5 mg PO DAILY@1700 [facility] PRN Reason: Protocol Last Admin: 08/26/16 16:52 Dose: 5 mg Vital Signs 08/25/16 08/25/16 08/25/16 19:22 20:52 21:23 Temperature 98.6 F Pulse Rate 79 Respiratory 16 18 Rate Blood Pressure 111/65 155/101 (mmHg) O2 Sat by Pulse 97 Oximetry 08/25/16 08/25/16 08/25/16 22:03 22:52 23:55 Temperature 98.8 F 98.4 F Pulse Rate 75 80 Respiratory 16 18 16 Rate Blood Pressure 95/62 103/60 (mmHg) O2 Sat by Pulse 95 95 Oximetry 08/26/16 08/26/16 08/26/16 04:41 06:45 07:28 Temperature 98.4 F 98.7 F Pulse Rate 73 78 Respiratory 16 16 16 Rate Blood Pressure 99/65 105/65 (mmHg) O2 Sat by Pulse 98 97 Oximetry 08/26/16 08/26/16 08/26/16 12:10 15:22 15:29 Temperature 98.7 F 98.3 F Pulse Rate 74 84 Respiratory 16 14 18 Rate Blood Pressure 140/86 144/83 (mmHg) O2 Sat by Pulse 100 100 Oximetry 08/26/16 17:07 Temperature Pulse Rate Respiratory 16 Rate Blood Pressure (mmHg) O2 Sat by Pulse Oximetry Oxygen Devices in Use Now: None Appearance: sittin gup in bed, NAD Eyes: No Scleral Icterus, PERRLA Ears/Nose/Mouth/Throat: NL Teeth, Lips, Gums, Clear Oropharnyx, Mucous Membranes Moist Neck: NL Appearance and Movements; NL JVP, Trachea Midline, No Thyroid Enlargement, Masses Respiratory: Symmetrical Chest Expansion and Respiratory Effort, Clear to Auscultation Cardiovascular: NL Sounds; No Murmurs; No JVD, RRR Abdominal: NL Sounds; No Tenderness; No Distention, No Hepatosplenomegaly Lymphatic: No Cervical Adenopathy Extremities: No Edema Skin: No Rash or Ulcers Neurological: Alert and Oriented x 3, NL Sensation, NL Gait, NL Muscle Strength and Tone Result Diagrams: 08/26/16 05:29 08/25/16 13:00 Assess/Plan/Problems-Billing Assessment: 31yo F h/o lumbar radiculopathy, chronic headache syndrome, recent dx of pseudotumor cerebri found with sinus venous thrombus - Patient Problems (1) Cerebral venous sinus thrombosis, acute Comment: lovenox to coumadin bridge encouraged smoking cessation hypercoag work up pending completion Starting diamox (2) Empty sella Comment: pt reports "low endocrine fucntion." No need for urgent testing encouraged continue contact with endo in [place] ([facility] does not accept insurance and she does not want to go to [place].) (3) History of gastrointestinal bleeding Comment: Pt has had intermittent lower GI bleed c/w hemorroids and blood clots in her urine (last was April). For this reason I will observe her overnight for any evidence of bleeding on coumadin and lovenox
[2016-08-26 19:15] LABS: Phospholipid Ab IgG < 9.4 GPL; Phospholipid Ab IgM, S 18.1 MPL
[2016-08-26] MEDS ORDERED: Ondansetron INJ* 2 MG/ML VIAL IV PRN (19:52)
--- NOTE | 2016-08-26 22:43 | PN ---
NEUROLOGICAL FOLLOWUP: DATE OF SERVICE: DATE OF DICTATION: 08/26/2016. PATIENT OF: Dr. Bentley. HISTORY: Alyssa is a 31-year-old woman with sinus thrombosis. She notes that since beginning her Diamox this morning, her hands are tingling a little but her headache, which had been persistent and constant, is intermittent and a little bit less intense. She has no visual symptoms currently at this time. MEDICATIONS: Diamox dose is 250 t.i.d. She is also on her home meds as well as Lovenox and Coumadin. She has no other complaints. PHYSICAL EXAMINATION: Temperature 98.7, pulse 79, respirations 16, blood pressure 140/86. She is alert and oriented with normal speech and comprehension. Cranial nerves II through XII are intact. She had full extraocular movements today. Strength 5/5. Reflexes 2 and equal. Chest: Clear. Cardiovascular: Regular rate and rhythm. Abdomen: Soft with positive bowel sounds. LABORATORY DATA: Her labs show a normal antithrombin III level, normal activated protein C, lupus anticoagulants are normal. Anticardiolipin antibodies are pending. Prothrombin gene mutation is pending. ASSESSMENT AND PLAN: The plan is for the patient to go home today with followup within the next 2 or 3 weeks after the hemological workup is done with Dr. Bentley, but to touch base with the office next week, just to let me know how she is doing. I discussed with her signs of worsening headache or change in vision, she should call quickly and they will speak to Dr. Bentley about the dose of Diamox he wants. Her decisions will be made by Dr. Bentley in terms of length of anticoagulation and also if and when we would be able to do a spinal tap, this would depend in part on the hematological workup. The patient has been instructed to stay well hydrated. Thank you for sharing her case. [id number]/[facility] #: [id number] RK
[2016-08-27] MEDS: Enoxaparin(*) 100 MG/ML SYR SUBCUT SCH (02:51)
[2016-08-27 07:44] VITALS: BP 108/65
[2016-08-27] MEDS: oxyCODONE/Acetamin 5/325 MG* TAB PO PRN (08:30)
[2016-08-27] MEDS: acetaZOLAMIDE TAB* 250 MG PO SCH (08:30)
[2016-08-27] MEDS: Amphetamine/Dextroamph ER(NF) 30 MG CAP.ER PO SCH (09:03)
--- NOTE | 2016-08-28 | DS ---
DISCHARGE SUMMARY: DATE OF ADMISSION: 08/25/16 DATE OF DISCHARGE: 08/27/16 PRIMARY CARE PROVIDER: SANDRA Rg, Dr. Kennedy's office. PRIMARY DIAGNOSIS: Central cerebral venous sinus thrombosis. SECONDARY DIAGNOSES: 1. Pseudotumor cerebri. 2. Empty sella syndrome. 3. History of hemorrhoids with reported history of lower gastrointestinal bleed. 4. Chronic headache. 5. Lumbar radiculopathy. PERTINENT IMAGING: Performed during hospital stay none. Pertinent imaging performed prior to hospital stay head MRA. Impression: 1. Findings suggestive of thrombosis of the left transverse sinus with partial reconstitution at the level of the transverse sigmoid junction. 2. There is also abnormality of the right transverse sigmoid junction, which may reflect chronic partially recanalized thrombus. PERTINENT LABORATORY DATA: Anticardiolipin IgM antibody 18.1, weakly positive. Please note multiple labs remain pending including prothrombin gene mutation and other tests from hypercoagulable workup. HISTORY OF PRESENT ILLNESS AND HOSPITAL COURSE: This is a 31-year-old female with past medical history as noted in the history of present illness, who was noted on visual exam to have optic disc edema with papilledema, referred to see Dr. Bentley, who agreed and referred the patient for MRI and MRA with findings as indicated above, after which she was directed towards the hospital. In the hospital, the patient was started on Coumadin with the Lovenox bridge. She was monitored an extra night given her history of lower GI bleed, which was thought to be secondary to hemorrhoids. She had no upper or lower GI bleeding. She tolerated the medications well. She continued to have headache, although improved since the time of admission and described it is definitely improved compared to the last 2 months. She was started on acetazolamide for the treatment of pseudotumor cerebri in addition to Lovenox and Coumadin. She underwent Lovenox teaching, felt comfortable administrating to herself. Her INR on the day of discharge 1.06. She should have a repeat test on Wednesday as indicated in her discharge summary and discussed with the patient. I contacted her pharmacy and confirmed they have necessary medications for the patient prior to her discharge. FOLLOWUP INSTRUCTIONS: At followup, please: 1. Please follow INR, adjust Coumadin as necessary. 2. Please follow up on remainder of hypercoagulable workup. 3. Please ensure followup with Dr. Bentley in 2 to 4 weeks after hypercoagulable workup is completed. 4. No other specific labs or vitals that need followup. Reasons to return to the hospital including but not limited to recurrent or worsening symptoms including chest pain or shortness of breath, worsening headache, changes in vision or visual symptoms, nausea, vomiting, lightheadedness, loss of consciousness, near of loss of consciousness, bleeding from any source including in her vomit, bright red blood per rectum, dark black stool, blood in her urine, or inability to obtain or tolerate medications were discussed with the patient at length, she acknowledged understanding. TIME SPENT: Greater than 45 minutes was spent on the discharge of this patient , greater than half was spent [id number] with the patient. CC: Dr. Bentley; SANDRA Rg * [id number]/[facility] #: [id number] MTDErika
== END 2016-08-27 12:04 | disposition home or self-care (01) ==
LOC: MEDTELE 12:06
PROVIDERS: ADMIT Internal Medicine; ATTEND Internal Medicine
DX: G08 Intracranial and intraspinal phlebitis and thrombophlebitis (principal); G93.2 Benign intracranial hypertension; R51 Headache; M54.16 Radiculopathy, lumbar region; I10 Essential (primary) hypertension; F41.9 Anxiety disorder, unspecified; Z79.899 Other long term (current) drug therapy; F17.210 Nicotine dependence, cigarettes, uncomplicated; Z32.02 Encounter for pregnancy test, result negative
CPT/HCPCS: 36415; 80053; 81240; 81241; 84702; 85025; 85300; 85303; 85306; 85307; 85610; 85613; 85730; 86147; 96361; 96372; 96374; A9270-GY; G0378; J1650; J2405

== ENCOUNTER 2016-09-30 18:07 | Emergency (ER) | payer OTHER ==
[2016-09-30] MEDS ORDERED: NS 0.9% 1000 ML* 1,000 ML IV SCH (21:45)
[2016-09-30 22:47] LABS: Hematocrit 41 % (35-47); Hemoglobin 14.1 g/dl (12.0-16.0); Mean Corpuscular HGB Conc 34 g/dl (31-36); Mean Corpuscular Hemoglobin 28 pg (27-31); Mean Corpuscular Volume 82 fL (80-97); Mean Platelet Volume 9 um3 (7.4-10.4); Red Blood Count 5.06 10^6/ul (4.0-5.4); Red Cell Distribution Width 14 % (10.5-15); White Blood Count 9.7 10^3/ul (3.5-10.8)
[2016-09-30 23:04] LABS: ALT 12 U/L (7-52); AST 14 U/L (13-39); Albumin 4.1 g/dL (3.2-5.2); Alkaline Phosphatase 65 U/L (34-104); Anion Gap 6 mmol/L (2-11); BUN/Creatinine Ratio 7.6 (8-20); Blood Urea Nitrogen 5 mg/dL (6-24); C Reactive Protein 2.67 mg/L (< 5.00); CO2 Carbon Dioxide 22 mmol/L (22-32); Calcium 9.2 mg/dL (8.6-10.3); Chloride 109 mmol/L (101-111); EGFR African American 133.5 (>60); EGFR Non-African American 103.8 (>60); Globulin 2.7 g/dL (2-4); Glucose 100 mg/dL (70-100); Potassium 3.5 mmol/L (3.5-5.0); Sodium 137 mmol/L (133-145); Total Protein 6.8 g/dL (6.4-8.9)
[2016-10-01 00:30] VITALS: BP 118/67
--- NOTE | 2016-10-01 15:44 | ED ---
Belen Mitchell Alfonso, scribed for Kalyan Bailon MD on 09/30/16 at 2110 . Headache - HPI Summary HPI Summary: This is a 31 year old female presenting to [facility] c/o an acute on chronic frontal headache which began this morning. She characterizes this constant headache as different from past headaches. Symptoms aggravated and alleviated by nothing. She complains of nausea and dizziness. She reports tingling in her feet, hands, and face. She states flashing in her peripheral vision began a few days ago. Patient reports CSF has been leaking out her left nostril when she sits up and down her throat when she lies down since this morning. PMHx of intracranial hypertension and low cortisol. - History Of Current Complaint Chief Complaint: EDHeadache Stated Complaint: POSS CSF LEAK-HX IIH/PTC Time Seen by Provider: 09/30/16 20:55 Hx Obtained From: Patient Onset/Duration: Sudden Onset Initially Headache Was: Moderate Currently Pain Is: Moderate Timing: Constant Location of Headache: Frontal Aggravating Factor: Nothing Allevating Factors: Nothing Associated Signs And Symptoms: Dizziness, Nausea, Visual Changes - flashing in her peripheral vision began a few days ago., Other (Noted In Comments) - Positive tingling in her feet, hands, and face. - Allergies/Home Medications Allergies/Adverse Reactions: Allergies Allergy/AdvReac Type Severity Reaction Status Date / Time No Known Allergies Allergy Verified 08/31/16 09:28 PMH/Surg Hx/FS Hx/Imm Hx Endocrine/Hematology History: Reports: Other Endocrine/Hematological Disorders - low cortisol and low ACTH Denies: Hx Anticoagulant Therapy, Hx Diabetes, Hx Systemic Lupus Erythematosus, Hx Thyroid Disease Cardiovascular History: Reports: Hx Hypertension - She states she had this before, but her BP is "not high any more." Denies: Hx Congestive Heart Failure, Hx Deep Vein Thrombosis, Hx Myocardial Infarction, Hx Pacemaker/ICD Respiratory History: Reports: Hx Asthma Denies: Hx Chronic Obstructive Pulmonary Disease (COPD), Hx Lung Cancer, Hx Pneumonia, Hx Pulmonary Embolism GI History: Reports: Other GI Disorders - constipation Denies: Hx Gall Bladder Disease, Hx Gastrointestinal Bleed, Hx Ulcer, Hx Urosepsis History: Denies: Hx Dialysis, Hx Kidney Stones, Hx Renal Disease Musculoskeletal History: Reports: Hx Arthritis, Hx Back Problems, Other Musculoskeletal History - herniated disc Denies: Hx Rheumatoid Arthritis Sensory History: Reports: Hx Contacts or Glasses Denies: Hx Hearing Aid Opthamlomology History: Reports: Hx Contacts or Glasses Neurological History: Reports: Hx Headaches, Other Neuro Impairments/Disorders - 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 appendectomy Infectious Disease History: No Infectious Disease History: Denies: Hx Clostridium Difficile, Hx Hepatitis, Hx Human Immunodeficiency Virus (HIV), Hx of Known/Suspected MRSA, Hx Shingles, Hx Tuberculosis, Hx Known/ Suspected VRE, Hx Known/Suspected VRSA, History Other Infectious Disease, Traveled Outside the [place] in Last 30 Days - Family History Known Family History: Positive: Hypertension, Other - aneurysm, bipolar disorder Negative: Cardiac Disease - Social History Alcohol Use: None Hx Substance Use: No Substance Use Type: Reports: None Hx Tobacco Use: Yes Smoking Status (MU): Current Every Day Smoker Type: Cigarettes Amount Used/How Often: 5-7 cigarettes/day Have You Smoked in the Last Year: Yes Review of Systems Positive: Other - Flashing in her peripheral vision began a few days ago. Positive: Other - CSF might be leaking out her left nostril when she sits up and down her throat when she lies down. Positive: Nausea Neurological: Other - Positive dizziness, Positive: Headache - acute on chronic frontal headache which began this morning and is different from past headaches. , Numbness - tingling in her feet, hands, and face All Other Systems Reviewed And Are Negative: Yes Physical Exam - Summary Physical Exam Summary: Gen: well-appearing, no pain distress Skin: warm, color, dry Head: normal Eyes: EOMI, FAISAL ENT: normal Neck: supple, nontender Resp: CTA, breath sounds present Cardio: RRR Abd: soft, nontender Bowel: present Musc: normal, strength/ROM intact Neuro: normal, sensory/motor intact, A&O x3 Psych: affect/mood appropriate Triage Information Reviewed: Yes Vital Signs On Initial Exam: Initial Vitals Temp Pulse Resp BP Pulse Ox 97.8 F 105 17 141/98 97 09/30/16 18:12 06/14/17 18:12 09/30/16 18:12 09/30/16 18:12 09/30/16 18:12 Vital Signs Reviewed: Yes - [place] Coma Scale Coma Scale Total: 15 Diagnostics - Vital Signs Vital Signs Temp Pulse Resp BP Pulse Ox 09/30/16 20:58 98.4 F 99 18 129/87 96 09/30/16 20:49 93 100 09/30/16 20:47 127/90 09/30/16 18:12 97.8 F 105 17 141/98 97 - Laboratory Result Diagrams: 09/30/16 22:30 09/30/16 22:30 Lab Statement: Any lab studies that have been ordered have been reviewed, and results considered in the medical decision making process. Re-Evaluation - Re-Evaluation First Eval Re-Evaluation Time: 21:41 Comment: Discussed imaging with the patient. Headache Course/Dx - Course Course Of Treatment: NO CRITICAL CARE TIME. DISCUSSED WITHH DR CARVAJAL, NEUROLOGY. HE RECOMMENDED CHECKING FOR GLUCOSE IN THE RHINORRHEA TO HELP DETERMINE IF THE RHINORRHEA IS CSF. RHINORRHEA GLUCOSE IS PENDING AT SHIFT CHANGE. - Diagnoses Provider Diagnoses: Rhinorrhea - Physician Notifications Discussed Care Of Patient With: Donaldo Carvajal Time Discussed With Above Provider: 21:40 - Instructed by Provider To: Other - Discussed patient with Dr. Carvajal ( Neurologist) and he recommends to proceed with labs and consult further with results. Discharge - Discharge Plan Condition: Stable Disposition: AGAINST MEDICAL ADVICE Referrals: Bipin Kennedy MD [Primary Care Provider] - The documentation as recorded by the Belen flores Alfonso accurately reflects the service I personally performed and the decisions made by me, Kalyan Bailon MD.
== END 2016-10-01 00:28 | disposition left against medical advice (07) ==
LOC: ED 18:07
DX: J34.89 Other specified disorders of nose and nasal sinuses (principal); R42 Dizziness and giddiness; R11.0 Nausea; F17.210 Nicotine dependence, cigarettes, uncomplicated
CPT/HCPCS: 36415; 80053; 84702; 85025; 85610; 85730; 86140; 99283

== ENCOUNTER 2018-01-17 10:41 | Emergency (ER) | payer OTHER ==
--- NOTE | 2018-01-17 12:32 | ED ---
Complex/Multi-Sys Presentation - HPI Summary HPI Summary: The pt is a 32 y/o female presenting to [facility] c/o vision changes since today morning after dropping her son to school. She describes the episodes as tunnel vision and blurred peripheral vision. She notes [place], back and shoulder tightness , loss of balance, dizziness, fever, and multiple falls yesterday but denies vomiting and diarrhea. She does not see a neurologist currently. The pt had a shunt placed one year ago in [place] and is currently on blood thinners. - History Of Current Complaint Chief Complaint: EDGeneral Time Seen by Provider: 01/17/18 12:14 Hx Obtained From: Patient Onset/Duration: Still Present, Worse Since - Today morning Associated Signs And Symptoms: Positive: Dizziness, Headache, Fever, Other - Back and shoulder tightness, Loss of balance, falls,. Negative: Vomiting, Diarrhea - Allergies/Home Medications Allergies/Adverse Reactions: Allergies Allergy/AdvReac Type Severity Reaction Status Date / Time No Known Allergies Allergy Verified 01/17/18 10:48 PMH/Surg Hx/FS Hx/Imm Hx Previously Healthy: No Endocrine/Hematology History: Reports: Other Endocrine/Hematological Disorders - low cortisol and low ACTH Denies: Hx Anticoagulant Therapy, Hx Diabetes, Hx Systemic Lupus Erythematosus, Hx Thyroid Disease Cardiovascular History: Reports: Hx Hypertension - She states she had this before, but her BP is "not high any more." Denies: Hx Congestive Heart Failure, Hx Deep Vein Thrombosis, Hx Myocardial Infarction, Hx Pacemaker/ICD Respiratory History: Reports: Hx Asthma Denies: Hx Chronic Obstructive Pulmonary Disease (COPD), Hx Lung Cancer, Hx Pneumonia, Hx Pulmonary Embolism GI History: Reports: Other GI Disorders - constipation Denies: Hx Gall Bladder Disease, Hx Gastrointestinal Bleed, Hx Ulcer, Hx Urosepsis History: Denies: Hx Dialysis, Hx Kidney Stones, Hx Renal Disease Musculoskeletal History: Reports: Hx Arthritis, Hx Back Problems, Other Musculoskeletal History - herniated disc Denies: Hx Rheumatoid Arthritis Sensory History: Reports: Hx Contacts or Glasses Denies: Hx Hearing Aid Opthamlomology History: Reports: Hx Contacts or Glasses Neurological History: Reports: Hx Headaches, Other Neuro Impairments/Disorders - 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 appendectomy Infectious Disease History: No Infectious Disease History: Denies: Hx Clostridium Difficile, Hx Hepatitis, Hx Human Immunodeficiency Virus (HIV), Hx of Known/Suspected MRSA, Hx Shingles, Hx Tuberculosis, Hx Known/ Suspected VRE, Hx Known/Suspected VRSA, History Other Infectious Disease, Traveled Outside the [place] in Last 30 Days - Family History Known Family History: Positive: Hypertension, Other - aneurysm, bipolar disorder Negative: Cardiac Disease - Social History Occupation: Employed Full-time Lives: With Family Alcohol Use: None Hx Substance Use: No Substance Use Type: Reports: None Hx Tobacco Use: Yes Smoking Status (MU): Light Every Day Tobacco Smoker Type: Cigarettes Amount Used/How Often: 5-7 cigarettes/day Have You Smoked in the Last Year: Yes Review of Systems Constitutional: Other - Positive: multiple falls, loss of balance Positive: Fever Positive: Blurred Vision Negative: Vomiting, Diarrhea Positive: Other - Positive: Back and shoulder tightness Positive: Headache All Other Systems Reviewed And Are Negative: Yes Physical Exam - Summary Physical Exam Summary: Appearance: The patient is well-nourished in no acute distress and in no acute pain. Skin: The skin is warm and dry and skin color reflects adequate perfusion. HEENT: The head is normocephalic and atraumatic. The pupils are equal and reactive. No papillary edema The conjunctivae are clear and without drainage. Nares are patent and without drainage. Mouth reveals moist mucous membranes and the throat is without erythema and exudate. The external ears are intact. The ear canals are patent and without drainage. The tympanic membranes are intact. Neck: The neck is supple with full range of motion and non-tender. There are no carotid bruits. There is no neck vein distension. Respiratory: Chest is non-tender. Lungs are clear to auscultation and breath sounds are symmetrical and equal. Cardiovascular: Heart is regular rate and rhythm. There is no murmur or rub auscultated. There is no peripheral edema and pulses are symmetrical and equal. Abdomen: The abdomen is soft and non-tender. There are normal bowel sounds heard in all four quadrants and there is no organomegaly palpated. Musculoskeletal: There is no back tenderness noted. Extremities are non-tender with full range of motion. There is good capillary refill. There is no peripheral edema or calf tenderness elicited. Neurological: Patient is alert and oriented to person, place and time. The patient has symmetrical motor strength in all four extremities. Cranial nerves are grossly intact. Deep tendon reflexes are symmetrical and equal in all four extremities. GCS:15 Triage Information Reviewed: Yes Vital Signs On Initial Exam: Initial Vitals Temp Pulse Resp BP Pulse Ox 98.7 F 76 18 165/103 99 01/17/18 10:46 01/17/18 10:46 01/17/18 10:46 01/17/18 10:46 01/17/18 10:46 Vital Signs Reviewed: Yes Diagnostics - Vital Signs Vital Signs Temp Pulse Resp BP Pulse Ox 01/17/18 12:16 88 18 149/89 99 01/17/18 10:46 98.7 F 76 18 165/103 99 - Laboratory Result Diagrams: 01/17/18 13:00 01/17/18 13:00 Lab Statement: Any lab studies that have been ordered have been reviewed, and results considered in the medical decision making process. - CT Brain CT CT Interpretation Completed By: Radiologist - IMPRESSION: NO ACUTE INTRACRANIAL PATHOLOGY. The ED physician reviewed this radiology report. Complex Multi-Symp Course/Dx Course Of Treatment: Ms. Osorio presents complaining of this headache that has been coming on and gradually increasing 4 weeks. It got to the point today where she noticed tunnel vision when she was driving. She states that she still has it but not when she is lying in bed only when she is moving. She is also had some balance issues over the past weeks. She has an LP shunt placed last winter for pseudotumor cerebri. Her neuro exam is intact today and she has no papilledema. A CT scan shows normal ventricles. Dr. Hansen was asked to consult and he examined her. He feels that she has a low pressure headache and that her LP shunt needs to be adjusted. He recommended medications in the interim and follow up with her neurosurgeon as well as Dr. Cota. - Diagnoses Provider Diagnoses: Head ache - Physician Notifications Discussed Care Of Patient With: Gopi Hansen - Neurologist Time Discussed With Above Provider: 12:50 Instructed by Provider To: Other - Dr. Hansen recommended performing a brain CT Discharge - Sign-Out/Discharge Documenting (check all that apply): Patient Departure - DC - Discharge Plan Condition: Improved Disposition: HOME Prescriptions: Butalb/Acetamin/Caff TAB* [Fioricet TAB*] 1 tab PO Q6H PRN #20 tab MDD 4 PRN Reason: Headache Topiramate TAB(*) [Topamax 25 MG tab] 25 mg PO BEDTIME #30 tab Patient Education Materials: Acute Headache (ED) Referrals: Bipin Kennedy MD [Primary Care Provider] - 3 Days Additional Instructions: Return to ED for any new or worsening symptoms - Billing Disposition and Condition Condition: IMPROVED Disposition: Home - Attestation Statements Document Initiated by Scribe: Yes Documenting Scribe: Yeny Gómez Provider For Whom Robyn is Documenting (Include Credential): Dr. Kulwant Brar MD Scribe Attestation: Yeny Mitchell , scribed for Dr. Kulwant Brar MD on 01/17/18 at 1455. Scribe Documentation Reviewed: Yes Provider Attestation: The documentation as recorded by the Yeny flores accurately reflects the service I personally performed and the decisions made by me, Dr. Kulwant Brar MD
[2018-01-17 13:08] LABS: ABS Basophils 0 10^3/ul (0-0.2); ABS Eosinophils 0.2 10^3/ul (0-0.6); ABS Lymphocytes 2.6 10^3/ul (1.0-4.8); ABS Monocytes 0.7 10^3/ul (0-0.8); ABS Neutrophils 3.8 10^3/ul (1.5-7.7); ABS Nucleated RBC 0 10^3/ul; Eosinophil % 2.3 % (0-6); Hematocrit 43 % (35-47); Hemoglobin 14.6 g/dl (12.0-16.0); Lymphocyte % 35.3 % (25-47); Mean Corpuscular HGB Conc 34 g/dl (31-36); Mean Corpuscular Hemoglobin 28 pg (27-31); Mean Corpuscular Volume 83 fL (80-97); Mean Platelet Volume 7.6 um3 (7.4-10.4); Nucleated Red Blood Cells % 0.1; Platelet Count 314 10^3/ul (150-450); Red Blood Count 5.18 10^6/ul (4.00-5.40); Red Cell Distribution Width 14 % (10.5-15); White Blood Count 7.3 10^3/ul (3.5-10.8)
[2018-01-17 13:13] LABS: INR 0.97 (0.77-1.02)
--- NOTE | 2018-01-17 13:21 | RAD ---
HISTORY: Visual problems COMPARISONS: None TECHNIQUE: Multiple contiguous axial CT scans were obtained of the head without intravenous contrast. FINDINGS: HEMORRHAGE/INFARCT: There is no hemorrhage or acute infarct. MASSES/SHIFT: There is no mass or shift. EXTRA-AXIAL SPACES: There are no extra-axial fluid collections. SULCI AND VENTRICLES: The sulci and ventricles are normal in size and position for the patient's stated age. CEREBRUM: There are no focal parenchymal abnormalities. BRAINSTEM: There are no focal parenchymal abnormalities. CEREBELLUM: There are no focal parenchymal abnormalities. VESSELS: The vessels are grossly normal. PARANASAL SINUSES: The paranasal sinuses are clear. ORBITS: The orbits are unremarkable. BONES AND SOFT TISSUE: No bone or soft tissue abnormalities are noted. OTHER: None IMPRESSION: NO ACUTE INTRACRANIAL PATHOLOGY.
[2018-01-17 13:46] LABS: EGFR Non-African American 122.2 (>60)
[2018-01-17] MEDS ORDERED: Butalb/Acetamin/Caff TAB* 1 TAB PO ONE (15:07)
[2018-01-17 15:16] VITALS: BP 131/91
--- NOTE | 2018-01-17 21:17 | CONS ---
CONSULTATION NOTE: DATE OF CONSULT: 01/17/18 - EMERGENCY DEPT CONSULTING PROVIDER: Dr. Kulwant Brar. REASON FOR CONSULT: Headaches. CHIEF COMPLAINT: Chronic headaches. HISTORY OF PRESENT ILLNESS: Alyssa Osorio is a 32-year-old right-handed female, who has a history of cerebral venous thrombosis, on Eliquis, and pseudotumor cerebri, who is status post lumbar shunt. The patient was diagnosed in August of 2016 when she was having increased headaches, papilledema on funduscopic examination, and increased CSF pressure on lumbar puncture. 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 The patient went to [facility] for further evaluation where she was seen by Dr. Alonso Lewis. They decided on proceeding with a lumbar shunt at that time. Since the shunt placement, the patient stated that she has not had any relief from the headaches. She stopped taking the acetazolamide in December 2016. She went to the [facility] Emergency Room, September-October of 2017, for similar headaches that she is presenting with now and an x-ray of the lumbar spine showed no problems with the lumbar shunt. She was told to lose weight and continue followup as outpatient. She was also evaluated by Neuro- ophthalmology at that time and she did not have any evidence of papilledema. I do not have any of these records, but this is what the patient reported to me today. She also follows up with Ophthalmology here in the [place] area, who sees Dr. Hardik Delaney. The patient stated that she has had increase in headaches over the last few days. Her headaches are mostly around the eyes with sharp stabbing pain around the left periorbital area. She has radiating pain to the upper shoulders and the neck region. She was driving her son to school today and suddenly had tunnel vision. This has since resolved. She has sometimes trouble seeing off her peripheries. If she moves the neck too quickly, she develops this tunnel vision. She used muscle relaxers over the last few days and that seems to be helping. She has intermittent shooting pain down the arms and legs. She also has daily headaches since she was diagnosed with migraine headaches at age 15. These headaches are associated with nausea and photophobia. She has never been evaluated by a neurologist. The patient has realized and noticed over the last few weeks that her headaches are significantly worse when she sits up or ambulates. She does have some relief when she lies flat. PAST MEDICAL HISTORY: Chronic neck and low back pain. PAST SURGICAL HISTORY: Lumbar shunt. MEDICATIONS: 1. Adderall 30 mg daily. 2. Clonazepam 0.5 mg p.o. at bedtime. 3. Eliquis 2.5 mg p.o. twice daily. ALLERGIES: No known drug allergies. FAMILY HISTORY: Her father after he committed suicide, but he did have AVM. Mother had brain surgery but was unclear to why. SOCIAL HISTORY: She quit smoking 1 month ago. She denied alcohol use. 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 REVIEW OF SYSTEMS: A 14-point review of systems was obtained and otherwise negative except for as mentioned in the HPI. PHYSICAL EXAM: Vitals: Temperature of 98.6, pulse rate of 88, respiratory rate of 18, oxygen saturation of 100%, blood pressure 131/91. General: Well- nourished, well-developed female, in no acute distress. Head is normocephalic/ atraumatic without any obvious abnormality. Eyes: Conjunctivae/corneas are clear. Neck is supple and symmetrical. No carotid bruits. Lungs are clear to auscultation bilaterally with nonlabored breathing. Cardiovascular: Regular rhythm with normal S1, S2. Radial pulses are palpable. Extremities: Normal range of motion with no cyanosis. Skin: No skin lesions or lacerations. Psych : Affect is broad and normal mood. Neurological Examination: Mental Status: Awake, alert, oriented to person, place, time, and general circumstances. Speech and language including expression, naming, repetition, and comprehensions were assessed and found to be normal. Cranial Nerves: Normal to confrontation bilaterally. Pupils are mid range and reactive to light and normal consensual response. Sensation is intact in the forehead, cheeks, and jaw region bilaterally. She has no facial droop. She is able to hear throughout the history process. Symmetrical palatal elevation. Normal strength against resistance. Tongue is symmetrical and midline with no atrophy or fasciculation. Funduscopic examination shows no evidence of disc edema and instead I see bilateral sharp disc margins with normal venous pulsations bilaterally. This was an undilated examination. Motor: No abnormal movements or pronator drift. She has 5/5 strength in upper and lower extremities. She has no focal motor weakness. She has no evidence of spasticity. Spurling sign is negative. Straight leg raise is negative. Reflexes, right/left: Brachioradialis 1/1, biceps 1/1, triceps 1/1, patella 1/1, ankle 1/1, plantar flexor/flexor. Sensation is intact to light throughout. Normal vibration and proprioception at the great toes. Coordination: Normal [id number] and rapid alternating movement. Gait and Station: Narrow based and normal stance and gait. DIAGNOSTIC STUDIES/LAB DATA: WBC 7.3, hemoglobin 14.6, hematocrit of 43, platelet count of 314. INR 0.97. Sodium 139, potassium 4, BUN of 9, creatinine of 0.57. C- reactive protein 3. CT head without contrast showed no acute intracranial abnormalities. ASSESSMENT: Ms. Alyssa Osorio is a 32-year-old female with history of pseudotumor cerebri and cerebral venous thrombosis, who is on Eliquis 2.5 mg twice daily, who also is status post lumbar shunt by Dr. Lewis, who has chronic daily headache, intermittent peripheral visual loss, and positional related headaches. I suspect the patient has a combination of migraine headaches as well as low cerebrospinal fluid headache given that her headaches are worse with upright posture. Her examination is not focal and she has no evidence of any myelopathy on exam. RECOMMENDATIONS: I recommend starting Topamax 25 mg nightly to take 1 tablet at night. The side effects of Topamax were discussed with the patient, which included but not limited to kidney stones, paresthesias in the upper extremities , and weight loss. In addition, I recommend she takes Fioricet to break the current headache cycle. She should not exceed more than 5 tablets a week. Please provide her with a supply of 30 days. I also encouraged the patient to contact her neurosurgeon at the [facility], Dr. Alonso Lewis, and see if there is any setting where the drainage for the lumbar shunt can decrease as it seems like that she is having low- pressure related headaches. She verbalized understanding and we will contact them for sooner appointment. She will also see Dr. Hardik Delaney for detailed and direct ophthalmological funduscopic examination. I will also set her up with Dr. Ian Cota to follow up in 4 weeks. I have asked her to check with her primary care doctor or hemotologist about the current dose of Eliquis. She is on a low dose for the treatment of venous thrombosis and how long does she have to be on treatment. Other treatment option that she should discuss with Dr. Lewis would be stenting placement in the transverse sinus to relieve both the IHH and the venous thrombosis. Defer these recommendations to the specialist. The patient verbalized understanding and content with the above mentioned plan. TIME SPENT: I spent a total of 70 minutes of which greater than 50% was spent reviewing the electronic medical records, obtaining history, examining the patient, and discussing the treatment plan and prognosis as mentioned above. The patient was extremely content that we have given her some relief regarding the headaches that she has been having for over a year now and feels hopeful that this regimen will improve her headaches. [id number]/CPS #: [id number] MTDD
== END 2018-01-17 15:16 | disposition home or self-care (01) ==
LOC: ED 10:41
DX: R51 Headache (principal); F17.210 Nicotine dependence, cigarettes, uncomplicated; Z98.2 Presence of cerebrospinal fluid drainage device
CPT/HCPCS: 36415; 70450; 80053; 85025; 85610; 86140; 99283; A9270-GY

== ENCOUNTER 2019-04-05 14:55 | Emergency (ER) | payer OTHER ==
[2019-04-05 16:59] LABS: Urine Appearance Clear; Urine Bilirubin Negative (Negative); Urine Blood 1+ (Negative); Urine Color Yellow; Urine Glucose Negative (Negative); Urine Ketones Negative (Negative); Urine Nitrite Negative (Negative); Urine Protein Negative (Negative); Urine Specific Gravity 1.017 (1.010-1.030); Urine Urobilinogen Negative (Negative)
[2019-04-05 17:03] LABS: Urine Bacteria 1+ (Absent); Urine Red Blood Cell 1+(3-5/hpf) (Absent); Urine Squamous Epithelial Cell Present (Absent); Urine White Blood Cell Trace(0-5/hpf) (Absent)
[2019-04-05 17:11] LABS: ABS Basophils 0.1 10^3/ul (0-0.2); ABS Eosinophils 0.2 10^3/ul (0-0.6); ABS Lymphocytes 2.7 10^3/ul (1.0-4.8); ABS Neutrophils 8.5 10^3/ul (1.5-7.7); Eosinophil % 1.6 %; Hematocrit 44 % (35-47); Lymphocyte % 21.6 %; Mean Corpuscular HGB Conc 34 g/dL (31-36); Mean Corpuscular Hemoglobin 28 pg (27-31); Mean Corpuscular Volume 82 fL (80-97); Nucleated Red Blood Cells % 0.1; Platelet Count 298 10^3/uL (150-450); Red Cell Distribution Width 15 % (10-15); White Blood Count 12.5 10^3/uL (3.5-10.8)
--- NOTE | 2019-04-05 17:17 | ED ---
Abdominal Pain/Female - HPI Summary HPI Summary: Patient is a 34-year-old female who presents to emergency Department who presents emergency department for left upper quadrant/side pain since yesterday. Patient notes pain is worse with movement. She does not recall a specific injuries or falls. Patient has a history of pseudotumor cerebri and has a lumbar peritoneal shunt. Patient notes she's been having increased headaches and is concerned her shunt may be on place. Pt. notes chronic pressure behind right eye but otherwise denies vision changes, numbness, tingling, weakness. Patient otherwise denies fever, productive cough, vomiting, diarrhea, dysuria, hematuria. Symptoms are moderate in severity. - History of Current Complaint Chief Complaint: EDFlankPain Stated Complaint: LEFT SIDE PAIN Time Seen by Provider: 04/05/19 16:08 Hx Obtained From: Patient Hx Last Menstrual Period: 06/22/16 Pain Intensity: 8 Allergies/Adverse Reactions: Allergies Allergy/AdvReac Type Severity Reaction Status Date / Time No Known Allergies Allergy Verified 04/05/19 15:03 Home Medications: Home Medications Fluticasone NASAL SPRAY 50MCG* [Flonase NASAL SPRAY 50MCG*] 2 spray BOTH NARES DAILY 04/05/19 [History Confirmed 04/05/19] PMH/Surg Hx/FS Hx/Imm Hx Previously Healthy: Yes Endocrine/Hematology History: Reports: Other Endocrine/Hematological Disorders - low cortisol and low ACTH Denies: Hx Anticoagulant Therapy, Hx Diabetes, Hx Systemic Lupus Erythematosus, Hx Thyroid Disease Cardiovascular History: Reports: Hx Hypertension - She states she had this before, but her BP is "not high any more." Denies: Hx Congestive Heart Failure, Hx Deep Vein Thrombosis, Hx Myocardial Infarction, Hx Pacemaker/ICD Respiratory History: Reports: Hx Asthma Denies: Hx Chronic Obstructive Pulmonary Disease (COPD), Hx Lung Cancer, Hx Pneumonia, Hx Pulmonary Embolism GI History: Reports: Other GI Disorders - constipation Denies: Hx Gall Bladder Disease, Hx Gastrointestinal Bleed, Hx Ulcer, Hx Urosepsis History: Denies: Hx Dialysis, Hx Kidney Stones, Hx Renal Disease Musculoskeletal History: Reports: Hx Arthritis, Hx Back Problems, Other Musculoskeletal History - herniated disc Denies: Hx Rheumatoid Arthritis Sensory History: Reports: Hx Contacts or Glasses Denies: Hx Hearing Aid Opthamlomology History: Reports: Hx Contacts or Glasses Neurological History: Reports: Hx Headaches, Other Neuro Impairments/Disorders - 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 appendectomy. LP SHUNT IN LUMBAR- DR DIOR IN [place](DUAL SWITCH [id number] MODEL NUMBER/ LOT#[id number]/SN# [id number]) -THIS IS NOT A PROGRAMMABLE SHUNT - USES GRAVITATIONAL TECHNOLOGY - W/ TITANIUM - W/ 2 CATHS - MED[employer] CATH - SAFE FOR 1.5T ,[employer] GS1 - CLEAR W/ BARIUM STRIPE - NO METAL Infectious Disease History: No Infectious Disease History: Denies: Hx Clostridium Difficile, Hx Hepatitis, Hx Human Immunodeficiency Virus (HIV), Hx of Known/Suspected MRSA, Hx Shingles, Hx Tuberculosis, Hx Known/ Suspected VRE, Hx Known/Suspected VRSA, History Other Infectious Disease, Traveled Outside the in Last 30 Days - Family History Known Family History: Positive: None, Hypertension, Other - aneurysm, bipolar disorder, Non-Contributory Negative: Cardiac Disease - Social History Occupation: Unemployed Lives: With Family Alcohol Use: None Hx Substance Use: No Substance Use Type: Reports: None Hx Tobacco Use: Yes Smoking Status (MU): Light Every Day Tobacco Smoker Type: Cigarettes Amount Used/How Often: 5-7 cigarettes/day Have You Smoked in the Last Year: Yes Review of Systems Constitutional: Negative Negative: Fever Eyes: Negative ENT: Negative Cardiovascular: Negative Respiratory: Negative Positive: Abdominal Pain. Negative: Vomiting, Diarrhea, Nausea Genitourinary: Negative Negative: dysuria Skin: Negative Positive: Headache. Negative: Weakness, Paresthesia, Numbness All Other Systems Reviewed And Are Negative: Yes Physical Exam Triage Information Reviewed: Yes Vital Signs On Initial Exam: Initial Vitals Temp Pulse Resp BP Pulse Ox 97.3 F 111 16 163/110 98 04/05/19 15:00 04/05/19 15:00 04/05/19 15:00 04/05/19 15:00 04/05/19 15:00 Vital Signs Reviewed: Yes Appearance: Positive: Well-Appearing - Pt. sitting up in bed in NAD. Pleasant. Skin: Positive: Warm, Dry Head/Face: Positive: Normal Head/Face Inspection Eyes: Positive: Normal, EOMI, FAISAL Neck: Positive: Supple Respiratory/Lung Sounds: Positive: Clear to Auscultation, Breath Sounds Present. Negative: Rales, Rhonchi, Wheezes Cardiovascular: Positive: Normal, RRR Abdomen Description: Positive: Other: - Obese. Abd. is soft with mild tenderness to LUQ and CVA without guarding or rebound. Neurological: Positive: Normal, Alert, Oriented to Person Place, Time, CN Intact II-III Psychiatric: Positive: Affect/Mood Appropriate Procedures - Sedation Patient Received Moderate/Deep Sedation with Procedure: No Diagnostics - Vital Signs Vital Signs Temp Pulse Resp BP Pulse Ox 04/05/19 16:11 98 154/104 98 04/05/19 16:10 92 97 04/05/19 15:00 97.3 F 111 16 163/110 98 - Laboratory Lab Results: Lab Results 04/05/19 04/05/19 Range/Units 16:40 17:01 WBC 12.5 H (3.5-10.8) 10^3/uL RBC 5.40 H (3.70-4.87) 10^6 /uL Hgb 15.0 (12.0-16.0) g/dL Hct 44 (35-47) % MCV 82 (80-97) fL MCH 28 (27-31) pg MCHC 34 (31-36) g/dL RDW 15 (10-15) % Plt Count 298 (150-450) 10^3/uL MPV 8.0 (7.4-10.4) fL Neut % (Auto) 68.3 % Lymph % (Auto) 21.6 % [place] % (Auto) 7.9 % Eos % (Auto) 1.6 % Baso % (Auto) 0.6 % Absolute Neuts (auto) 8.5 H (1.5-7.7) 10^3/ul Absolute Lymphs (auto) 2.7 (1.0-4.8) 10^3/ul Absolute Monos (auto) 1.0 H (0-0.8) 10^3/ul Absolute Eos (auto) 0.2 (0-0.6) 10^3/ul Absolute Basos (auto) 0.1 (0-0.2) 10^3/ul Absolute Nucleated RBC 0.0 10^3/ul Nucleated RBC % 0.1 Urine Color Yellow Urine Appearance Clear Urine pH 5.0 (5-9) Ur Specific [place] 1.017 (1.010-1.030) Urine Protein Negative (Negative) Urine Ketones Negative (Negative) Urine Blood 1+ A (Negative) Urine Nitrate Negative (Negative) Urine Bilirubin Negative (Negative) Urine Urobilinogen Negative (Negative) Ur Leukocyte Esterase Trace A (Negative) Urine WBC (Auto) Trace(0-5/hpf) (Absent) Urine RBC (Auto) 1+(3-5/hpf) A (Absent) Ur Squamous Epith Cells Present A (Absent) Urine Bacteria 1+ A (Absent) Urine Glucose Negative (Negative) Result Diagrams: 04/05/19 17:01 04/05/19 17:01 Lab Statement: Any lab studies that have been ordered have been reviewed, and results considered in the medical decision making process. Abdominal Pain Fem Course/Dx - Course Course Of Treatment: Pt. with upper abd pain and worsening headaches with a hx of psuedotumor cerebri. Case discussed with Dr. Pastor. Will obtain brain ct and shunt series for further evaluation of shunt function. Pt. has no visiual changes or neuro deficits on exam. .IMPRESSION: THE RADIOGRAPHICALLY UNREMARKABLE LUMBAR PERITONEAL SHUNT TERMINATES IN THE. LEFT MID ABD. . IMPRESSION: 1. Effacement of the suprasellar cistern and a decreased mamillopontine interval is. concerning for intracranial hypotension (question over shunting). There is no herniation. of the cerebellar tonsils. 2. The partially empty sella is compatible with a history of pseudotumor cerebri. This case was discussed with SANDRA Servin at 5:42 PM on April 05, 2019. Case discussed with Dr. Ureña, neurosx, he recommneds if pt. has no neuro or vision changes and is stable she can be dc home to f.u with her neurosx in [place] and for outpt. MRI brain with contrast. Results discused with pt. She agrees with dc home and neurosxs f.u. Will return to ER if sxs change or worsen. - Diagnoses Differential Diagnosis: Positive: , Renal Colic, Urinary Tract Infection Provider Diagnoses: Abdominal pain, Pseudotumor cerebri Discharge ED - Sign-Out/Discharge Documenting (check all that apply): Patient Departure - Discharge Plan Condition: Good Disposition: HOME Patient Education Materials: Acute Abdominal Pain (ED) Referrals: Jahaira Farias MD [Primary Care Provider] - Additional Instructions: Follow up with Dr. Farias on Wednesday as directed Please call your neurosurgeon in [place] for a close follow up appointment Our neurosurgeon, Dr. Zhang, recommends being scheduled for an outpatient MRI brain with contrast Return to ER for increased headache, vision change, fever, vomiting, or if concerned - Billing Disposition and Condition Condition: GOOD Disposition: Home - Attestation Statements Provider Attestation: I was available for consult. This patient was seen by the RUBI. The patient was not presented to, seen by, or examined by me. Augustin Pastor MD
[2019-04-05 17:30] LABS: Albumin 4.1 g/dL (3.2-5.2); Albumin/Globulin Ratio 1.3 (1-3); BUN/Creatinine Ratio 16.4 (8-20); C Reactive Protein 12.99 mg/L (<8.01); Calcium 9.8 mg/dL (8.6-10.3); EGFR African American 135.1 (>60); EGFR Non-African American 111.6 (>60); Globulin 3.1 g/dL (2-4); Total Bilirubin 0.3 mg/dL (0.2-1.0); Total Protein 7.2 g/dL (6.4-8.9)
[2019-04-05 17:32] LABS: Potassium 3.9 mmol/L (3.5-5.0)
[2019-04-05 18:29] VITALS: BP 159/108
== END 2019-04-05 18:28 | disposition home or self-care (01) ==
LOC: ED 14:55
DX: R10.10 Upper abdominal pain, unspecified (principal); I10 Essential (primary) hypertension; J45.909 Unspecified asthma, uncomplicated; F41.9 Anxiety disorder, unspecified; F90.9 Attention-deficit hyperactivity disorder, unspecified type; F17.210 Nicotine dependence, cigarettes, uncomplicated; Z90.89 Acquired absence of other organs
CPT/HCPCS: 36415; 70450; 74019; 80053; 81003; 81015; 83690; 85025; 86140; 87086; 99282